=== PATIENT | female | born 1980 | race Caucasian/White ===

== ENCOUNTER 2019-02-01 18:39 | Emergency (ER) | payer MEDICAID, SELFPAY ==
[2019-02-01 18:40] VITALS: BP 136/96; PULSE 92; RESP 16; TEMP 37; O2SAT 98
--- NOTE | 2019-02-01 19:07 | ED.GENADUL_ITS ---
Discharge Plan Disposition Patient Disposition: HOME Condition: Improving Discharge Details Chief Complaint: Nk/Back Pain Clinical Impression: Muscle spasms of neck Primary Care Provider: Fide George ED Provider: Galindo Berman Home Meds and New Rx's Prescriptions: New diazepam [Valium] 2 mg tablet 2 mg PO BID PRN (Reason: spasm) Qty: 14 RF: 0 Continued Nexplanon 68 mg implant 68 mg Subdermal ONCE Qty: 1 RF: 0 multivitamin Tablet 1 tab PO DAILY RF: 0 Discharge Instructions Instructions: Spasmodic Torticollis (ED) Additional Instructions: Please take acetaminophen (tylenol) - 650mg every 6 hours by mouth as needed for pain. Please contact your primary care physician and neurology to arrange follow-up. Return to the ER for any worsening or new concerning symptoms. Referrals: Ashanti Donovan MD [ [facility] ST[facility]FF PHYSICIAN] - Medical Decision Making 19:18 --38-year-old female with history of PCOS and chronic intermittent HAs, here with neck stiffness and associated headache waxing and waning over the past 1 month and worse since yesterday [place] Patient has no fever or rash consistent with infectious etiology. Waxing and waning nature of headache is not consistent with bacterial meningitis or subarachnoid hemorrhage. Suspect neck spasm and associated cephalgia. Plan to treat with Toradol, Valium, occipital nerve block and reassess. 19:30 -- Patient provided informed consent for occipital nerve block. Occipital nerve block was performed without complication. 20:00 -- Patient was reassessed and noted significant improvement in pain and stiffness. Feels much better. I had a lengthy conversation with the patient regarding differential diagnosis - we discussed lumbar puncture to assess for acute life threatening and lifestyle modifying disease. She would prefer to monitor her symptoms further and does not wish to pursue more invasive diagnostics at this time - informed refusal of LP. Patient has decisional making capacity. She agrees to follow-up with neurology and to return for any worsening or new concerning symptoms. She understands that should PAUL persist, additional diagnostics including MRV/MRI would be indicated. 20:25 --patient again reassessed and notes dramatic improvement in discomfort. No rated 2/10. Requesting discharge. Patient understands importance of timely follow-up. Disposition decision was made weighing the risks and benefits of hospitalization versus outpatient treatment, the risk for further decompensation, and her wishes. The patient was stable and requested discharge. Prior to discharge, my usual and customary return precautions were reviewed with the patient - this included follow-up instructions and reason to return to the emergency department if condition worsens, does not improve as expected, or other new concerns arise. HPI General Mode of arrival: ambulatory . Date/Time Provider Initiated Documentation: 02/01/19 18:44 . Limitations to Documentation: no limitations . Information obtained by: patient . HPI Narrative: 38-year-old female with history of PCOS presents today with chief complaint of neck stiffness. Patient notes that she has had neck stiffness and associated headache waxing and waning over the past 3 weeks. Patient does not recall any specific inciting event. She notes that she saw her chiropractor for this who did a neck adjustment last week which did not resolve symptoms. Yesterday, she [place] the fair and went [place] a slide with her children. Today she notes neck stiffness worse. Patient states pain in her posterior neck left greater than right. Pain radiates to her occiput and around her scalp to her eyes. She has associated headache. No fevers. No rash. No tick bites. No visual changes. No numbness or weakness. Patient has been taking Excedrin Migraine for her discomfort. She notes that she has not taken ibuprofen and she is concerned about potential adverse effects to her stomach as she is post bariatric bypass surgery. Related Data Home Medications Medication Instructions Recorded Confirmed etonogestrel 68 mg subdermal 68 mg SUBDERMAL ONCE #1 implant 09/21/18 02/01/19 implant diazepam [Valium] 2 mg PO BID PRN #14 tab 02/01/19 multivitamin 1 tab PO DAILY 02/01/19 02/01/19 Previous Rx's Medication Instructions Recorded etonogestrel 68 mg subdermal 68 mg SUBDERMAL ONCE #1 implant 09/21/18 implant diazepam [Valium] 2 mg PO BID PRN #14 tab 02/01/19 Allergies Allergy/AdvReac Type Severity Reaction Status Date / Time No Known Allergies Allergy Unverified 02/01/19 18:47 General Stated Complaint: Nk/Back Pain MARK: 3 Review of Systems Review of Systems All systems reviewed & are unremarkable except as noted in HPI and below Constitutional Denies chills, Denies fever(s), Reports headache(s) and Denies weakness Eyes Denies blurry vision, Denies change in vision, Denies loss of vision and Reports photophobia ENT Denies vertigo and Reports headache(s) Musculoskeletal Reports as per HPI and Denies numbness Neurologic Denies confusion, Denies vertigo, Reports headache(s), Denies loss of vision, Denies numbness and Denies weakness Psychiatric Denies confusion PFSH Medical History GDMA2 (Resolved) Obesity (Inactive) Polycystic ovaries (Chronic) Pyelonephritis (Resolved) Surgical History section (04/01/14) Family History Other Arthritis Social History Smoking/Tobacco Use Status: Never Alcohol Intake: never Drug use: Never Household members: significant other Number of Children: 2 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 Female Reproductive History Menstrual control method: implanted (Nexplanon Lot # [id number] 01/22/21) History History 3 Para 2 Hx # Term Pregnancies 2 Multiple births Hx # Pregnancies 0 Ectopic pregnancies AB induced 0 Hx Number of Living Children 2 AB spontaneous 1 Past Pregnancies Del. Date GA/Weeks # Outcome Route Wgt Sex Labor Lgth Anesthes ia Location Prov Complic Unknown 7 No Unknown 39 No Unsuccessful vaginal 2.948 kg Female [facility] 04/01/14 39 No Successful 4.111 kg Male AOC Delivery Date: On 09/21/18 @ 13:03 Danielle Yuen First trimester SAB without complications Delivery Date: No notes to display Delivery Date: 04/01/14 On 09/21/18 @ 13:06 Danielle Yuen [place]. IOL for GDM. Arrest of descent. Exam Const General: cooperative and no acute distress HENMT Head: normocephalic and atraumatic Mouth: moist mucous membranes Eyes Conjunctivae: normal conjunctivae Sclera: normal sclerae EOM: EOM intact bilaterally Neck Neck: trachea midline and supple Resp Auscultation: clear to auscultation bilaterally, no rales, no rhonchi and no wheezes Cardio Jugular venous pressure: no JVD Rate: regular rate and not tachycardic Rhythm: regular rhythm GI Palpation: soft, not firm, no guarding, no masses, not rigid and nontender Back/Spine/Pelvis Cervical Spine: cervical muscular tenderness, pain with cervical ROM and cervical spasm Skin General skin exam: no rashes or lesions noted Neuro General: alert, awake, oriented x3 and tone normal Cranial Nerves: CN's II-XI intact bilaterally Speech: speech normal Motor: muscle tone normal throughout and strength 5/5 throughout Sensory Exam: no sensory deficits noted Extrem General: no edema Psych Appearance: grossly normal Mental Status: mental status grossly normal Speech and Movement: speech and movement normal Course Vital Signs Temperature 37 C 02/01/19 18:40 Pulse 92 H 02/01/19 18:40 Respiratory Rate 16 02/01/19 18:40 Blood Pressure 136/96 H 02/01/19 18:40 Pulse Oximetry 98 02/01/19 18:40 Temperature 37 C 02/01/19 18:40 Temperature Source Skin 02/01/19 18:40 Pulse 92 H 02/01/19 18:40 Respiratory Rate 16 02/01/19 18:40 Respiratory Effort 02/01/19 18:48 Blood Pressure 136/96 H 02/01/19 18:40 Blood Pressure Position Sitting 02/01/19 18:40 Pulse Oximetry 98 02/01/19 18:40 Oxygen Delivery Method Room Air 02/01/19 18:40 Oxygen Flow Rate 0 02/01/19 18:40 Pain Level 8 02/01/19 18:40 Procedures Nerve Block Nerve Block 1: Local Anesthetic: Lidocaine 1% (2ml) and Bupivicaine 0.5% (2mL) Side: left and right Nerve Blocks: occipital Procedure Successful: Yes Patient Tolerated Procedure: well Complications: none
[2019-02-01] MEDS: Acetaminophen 325 MG TAB 650 MG PO (19:15)
[2019-02-01] MEDS: diazePAM 5 MG TAB PO (19:15)
[2019-02-01] MEDS: Ketorolac 30 MG/ML VIAL IM (19:16)
== END 2019-02-01 20:30 | disposition home or self-care (01) ==
PROVIDERS: Emergency Provider Student in an Organized Health Care Education/Training Program; PCP Nurse Practitioner Family
DX: G24.3 Spasmodic torticollis (principal); R51 Headache
CPT/HCPCS: 64405; 96372; 99284; J1885

== ENCOUNTER 2019-04-24 18:15 | Emergency (ER) | payer MEDICAID, SELFPAY ==
[2019-04-24 18:17] VITALS: BP 145/91; PULSE 123; RESP 22; TEMP 37; O2SAT 98
--- NOTE | 2019-04-24 18:35 | W.ED.GENAD ---
Discharge Plan Disposition Patient Disposition: HOME Condition: Stable Discharge Details Chief Complaint: FlankPain Clinical Impression: Pyelonephritis Primary Care Provider: Fide George ED Provider: Alonzo Godwin Home Meds and New Rx's Prescriptions: New cephalexin 500 mg capsule 500 mg PO TID 7 Days Qty: 21 RF: 0 Continued Nexplanon 68 mg implant 68 mg Subdermal ONCE Qty: 1 RF: 0 multivitamin Tablet 1 tab PO DAILY RF: 0 acetaminophen 500 mg Tablet 1,000 mg PO PRN PRNRF: 0 Discharge Instructions Instructions: Urinary Tract Infection in Women (ED) Additional Instructions: Stop the previously prescribed antibiotic nitrofurantoin/Macrobid. You were given a dose of IV antibiotic this evening and should start the prescribed Keflex tomorrow. Small, frequent sips of fluids to maintain hydration. May use Tylenol and/or ibuprofen as needed for persistent discomfort. Follow-up with Fide George in clinic if not improved within 5 days time. Return to the emergency department for any acute concerns. Medical Decision Making <Dago Orozco MD - Last Filed: 04/24/19 19:38> 38-year-old female presents with 5 days of urinary frequency and urgency. She was prescribed Macrobid by primary care which she has been taking for 4 days. States she felt initially improved, now with 2 days of low back pain that is greater on the left associated with generalized malaise and decreased p.o. intake. She is tachycardic and dehydrated in appearance. Differential diagnosis includes pyelonephritis, acute cystitis, less likely kidney stone/ureteral colic. IV placed, urinalysis obtained, patient referred for screening laboratories. Given fluid bolus and ketorolac. Patient subsequently given 0.5 mg hydromorphone. Labs are notable for trace hematuria, chemistries reassuring, CBC with white count 4, hematocrit 41, platelets 269. CT scan obtained and reveals nonobstructing left renal calculus. There is mild left perinephric edema present. No obstructing calculus. Consistent with pyelonephritis. Patient is improving with medical treatment. Given gram of Rocephin and will subsequently place her on Keflex. She is to stop the Macrobid. Lab Data Lab results reviewed: Yes I reviewed the patient's lab results. Labs: Laboratory Results - last 24 hr 04/24/19 04/24/19 04/24/19 18:25 18:35 18:35 WBC 4.43 RBC 5.02 Hgb 14.4 Hct 41.7 MCV 83.1 MCH 28.7 MCHC 34.5 RDW 13.8 Plt Count 269 MPV 10.2 Immature Gran % 0.0 Neutrophils % 92.1 Lymphocytes % 6.1 Monocytes % 0.9 Eosinophils % 0.7 Basophils % 0.2 Absolute Neutrophils 4.08 Absolute Lymphocytes 0.27 L Absolute Monocytes 0.04 L Absolute Eosinophils 0.03 Absolute Basophils 0.01 Sodium 142 Potassium 3.4 L Chloride 105 Carbon Dioxide 28.5 Anion Gap 8.5 BUN 16 Creatinine 0.81 Estimated GFR/1.73 m2 >= 60.00 Glucose 95 Calcium 8.8 Total Bilirubin 0.8 AST 13 L ALT 25 Alkaline Phosphatase 75 Total Protein 7.6 Albumin 4.2 Urine Color Yellow Urine Clarity Clear Urine pH 6.0 Ur Specific [place] 1.025 Urine Protein Negative Urine Ketones Negative Urine Blood Small H Urine Nitrite Negative Urine Bilirubin Negative Urine Urobilinogen 0.2 Ur Leukocyte Esterase Negative Urine RBC 3-5 H Urine WBC 0-2 Ur Epithelial Cells Few Urine Crystals Negative Urine Bacteria Few Urine Casts Negative Urine Mucus Negative Urine Other Negative Ur Culture Indicated? No Urine Glucose Negative <Alonzo Godwin MD - Last Filed: 04/24/19 21:38> pt feeling much better after meds and fluids, HR on my exam is 102 and she feels much better. She is hd stable and appropriate for d/c at this time, advised f/u with pcp and return precautions given HPI <Dago Orozco MD - Last Filed: 04/24/19 19:38> General Mode of arrival: ambulatory. Date/Time Provider Initiated Documentation: 04/24/19 18:17. Limitations to Documentation: no limitations. Information obtained by: patient. History of Present Illness 38 year old F presents to the emergency department with the chief complaint of Flank pain, subjective chills, described as moderate, Quality is described as dull and constant, and is localized to the back and left. Patient reports no radiation. Patient started experiencing this day(s) and it has been intermittent. No relieving factors improve symptom(s), No exacerbating factors reported . Patient notes fever/chills, loss of appetite and malaise; denies nausea/vomiting. Patient did receive the following treatments prior to arrival, other (Macrobid) Related Data Home Medications Medication Instructions Recorded Confirmed etonogestrel 68 mg subdermal 68 mg SUBDERMAL ONCE #1 implant 09/21/18 04/24/19 implant multivitamin 1 tab PO DAILY 02/01/19 04/24/19 acetaminophen 1,000 mg PO PRN PRN 04/24/19 04/24/19 cephalexin 500 mg PO TID 7 Days #21 cap 04/24/19 Previous Rx's Medication Instructions Recorded etonogestrel 68 mg subdermal 68 mg SUBDERMAL ONCE #1 implant 09/21/18 implant cephalexin 500 mg PO TID 7 Days #21 cap 04/24/19 Allergies Allergy/AdvReac Type Severity Reaction Status Date / Time No Known Allergies Allergy Unverified 04/24/19 18:23 General Stated Complaint: FlankPain MARK: 3 Review of Systems <Dago Orozco MD - Last Filed: 04/24/19 19:38> Narrative: 6 systems reviewed and otherwise negative. PFSH <Dago Orozco MD - Last Filed: 04/24/19 19:38> Medical History GDMA2 (Resolved) Rx with Glyburide during . Obesity (Inactive) 2017 bariatric surgery. BMI declined from 42 to 30.4 (09/19/18) Polycystic ovaries (Chronic) Pyelonephritis (Resolved) 2015. 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 Female Reproductive History Menstrual control method: implanted (Nexplanon Lot # [id number] 01/22/21) History History 3 Para 2 Hx # Term Pregnancies 2 Multiple births Hx # Pregnancies 0 Ectopic pregnancies AB induced 0 Hx Number of Living Children 2 AB spontaneous 1 Past Pregnancies Del. Date GA/Weeks # Outcome Route Wgt Sex Labor Lgth Anesthesia Location Prov Complic Unknown 7 No Unknown 39 No Unsuccessful vaginal 2.948 kg Female [facility] 04/01/14 39 No Successful 4.111 kg Male AOC Delivery Date: On 09/21/18 @ 13:03 Danielle Yuen First trimester SAB without complications Delivery Date: No notes to display Delivery Date: 04/01/14 On 09/21/18 @ 13:06 Danielle Yuen [place]. IOL for GDM. Arrest of descent. Exam <Dago Orozco MD - Last Filed: 04/24/19 19:38> Narrative Exam Narrative: GEN: awake, alert, oriented 3. Pleasant, well groomed, interactive. HEAD: Normocephalic, atraumatic ENT: Mucous membranes dry, oropharynx unremarkable, External ear exam unremarkable EYES: PERRL, EOMI NECK: Full ROM, no BAUTISTA, no menigismus CHEST/RESP: Nontender, clear to auscultation bilateral, no wheeze/rhonchi/rales CARDIOVASCULAR: Regular and tachycardic, no murmur, rub shaneka. 2+ Rad pulse bilateral ABDOMEN: Soft, nontender, no mass. +Bowel sounds. Minimal left flank pain to percussion EXT: Full ROM, no edema, no rash Neuro: Grossly normal neurologic exam, conversant, interactive. Psych: Speech fluent, thoughts congruent, affect normal Course <Dago Orozco MD - Last Filed: 04/24/19 19:38> Vital Signs Vital signs: Vital Signs Temperature 37 C 04/24/19 18:17 Pulse 123 H 04/24/19 18:17 Respiratory Rate 22 04/24/19 18:17 Blood Pressure 145/91 H 04/24/19 18:17 Pulse Oximetry 98 04/24/19 18:17 Temperature 37 C 04/24/19 18:17 Temperature Source Skin 04/24/19 18:17 Pulse 123 H 04/24/19 18:17 Respiratory Rate 22 04/24/19 18:17 Blood Pressure 145/91 H 04/24/19 18:17 Blood Pressure Position Sitting 04/24/19 18:17 Pulse Oximetry 98 04/24/19 18:17 Oxygen Delivery Method Room Air 04/24/19 18:17 Oxygen Flow Rate 0 04/24/19 18:17 Pain Level 9 04/24/19 18:17 Sign Out <Dago Orozco MD - Last Filed: 04/24/19 19:38> Sign Out Data: Sign Out Comment: Re-eval or DC after fluids Last updated by Dago Orozco MD at 04/24/19 19:59
[2019-04-24 18:38] LABS: Bilirubin Negative (Negative); Blood Small (Negative); Clarity Clear (Clear); Glucose Negative (Negative); Ketones Negative (Negative); Leukocyte Esterase Negative (Negative); Nitrite Negative (Negative); Specific Gravity 1.025 (1.005-1.025); Urobilinogen 0.2 EU/dL (Up TO 0.2)
[2019-04-24 18:45] LABS: WBC 0-2 HPF (0-5)
[2019-04-24 18:46] LABS: Bacteria Few HPF (Negative); C & S Indicated? No; Casts Negative LPF (Negative); Crystals Negative HPF (Negative); Epithelial Cells Few HPF (Negative); Mucus Negative (Negative); Other Cells Negative (Negative)
[2019-04-24] MEDS: Ondansetron 4 MG/2 ML VIAL IVP (18:46)
[2019-04-24] MEDS: Normal Saline 1,000 ML 1000 ML IV ×2 (18:47→20:03)
[2019-04-24] MEDS: Ketorolac 30 MG/ML VIAL IVP (18:47)
[2019-04-24] MEDS: Normal Saline Flush 10 ML SYR IVP (18:47)
[2019-04-24 18:55] LABS: Absolute Basophil Count 0.01 k/cumm (0.0-0.2); Absolute Eosinophil Count 0.03 k/cumm (0.0-0.7); Absolute Lymphocyte Count 0.27 k/cumm (1.2-3.4); Absolute Monocyte Count 0.04 k/cumm (0.11-0.7); Absolute Neutrophil Count 4.08 k/cumm (1.2-6.7); Basophils % 0.2; Eosinophils % 0.7; HCT 41.7 % (36.0-46.0); HGB 14.4 g/dL (12.0-15.5); Lymphocytes % 6.1; Mean Corp. HGB Concentration 34.5 g/dL (32.0-36.0); Mean Corpuscular Hemoglobin 28.7 pg (27.0-33.0); Mean Corpuscular Volume 83.1 fL (80-95); Mean Platelet Volume 10.2 fL (8.0-11.0); Monocytes % 0.9; Neutrophils % 92.1; Platelet Count 269 x1000/uL (130-400); RBC 5.02 m/cumm (4.00-5.20); RBC Distribution Width 13.8 % (11.7-14.6); White Blood Cell Count 4.43 k/cumm (4.4-10.8)
[2019-04-24 19:15] LABS: ALT 25 U/L (14-59); AST 13 U/L (15-37); Albumin 4.2 g/dL (3.4-5.0); Alkaline Phosphatase 75 U/L (46-116); Anion Gap 8.5 mmol/L (3-11); BUN 16 mg/dL (7-18); Bilirubin, Total 0.8 mg/dL (0.2-1.0); CO2 28.5 mmol/L (21.0-32.0); CREATININE 0.81 mg/dL (0.55-1.02); Calcium 8.8 mg/dL (8.5-10.1); Chloride 105 mmol/L (98-107); Glucose 95 mg/dL (70-100); Potassium 3.4 mmol/L (3.5-5.1); Sodium 142 mmol/L (136-145); Total Protein 7.6 g/dL (6.4-8.2)
--- NOTE | 2019-04-24 19:22 | DI.CT_ITS ---
EXAM: CT RENAL COLIC WO CLINICAL HISTORY: L flank pain TECHNIQUE: Noncontrast from the level of the adrenals through the ischial tuberosities. COMPARISON: ABD AND PELVIS WITH CONTRAST from 08/13/2015 FINDINGS: Suture material is seen in the stomach. A few small stones are noted in the gallbladder. There is n o abnormal gallbladder distention or biliary dilatation. The adrenals, spleen and pancreas are unrem arkable. There is a small nonobstructing stone in the mid left kidney. There is no hydronephrosis. There is minimal perinephric stranding. The bladder, uterus and ovaries are unremarkable. There is no free air or free fluid. The appendix appears normal. There are diverticula in the lower descend ing and sigmoid colon but no evidence of diverticulitis. There is no small bowel dilatation. IMPRESSION: Nonobstructing 2-3 millimeter stone in the mid left kidney. No acute abnormality.
--- NOTE | 2019-04-24 19:34 | DI.VRAD_ITS ---
PROCEDURE INFORMATION: Exam: CT Abdomen And Pelvis Without Contrast Exam date and time: 04/24/2019 6:58 PM Clinical history: 38 years old, female; Abdominal pain; Flank; Left; Prior surgery; Surgery date: 6+ months; Surgery type: Gastic bypass, TECHNIQUE: Imaging protocol: Computed tomography of the abdomen and pelvis without contrast. Radiation optimization: All CT scans at this facility use at least one of these dose optimization techniques: automated exposure control; mA and/or kV adjustment per patient size (includes targeted exams where dose is matched to clinical indication); or iterative reconstruction. COMPARISON: CT ABD PELVIS WITH CONTRAST 08/13/2015 6:32 PM FINDINGS: Liver: Normal as shown, incompletely imaged. No mass. Gallbladder and bile ducts: Gallstones. Pancreas: Normal. No ductal dilation. Spleen: Normal as shown, incompletely imaged. Adrenals: Normal. No mass. Kidneys and ureters: Nonobstructing left renal calculus noted. There is mild left perinephric edema. No hydronephrosis or hydroureter evident. No obstructing calculus seen. Stomach and bowel: Status post gastric bypass. Appendix: Appendix is well seen, within normal limits Intraperitoneal space: Unremarkable. No free air. No significant fluid collection. Vasculature: Unremarkable. No abdominal aortic aneurysm. Lymph nodes: Unremarkable. No enlarged lymph nodes. Bladder: Unremarkable as visualized. Reproductive: Unremarkable as visualized. Bones/joints: Unremarkable. No acute fracture. Soft tissues: Unremarkable. Other findings: The upper abdomen is not included on the exam. IMPRESSION: Nonobstructing left renal calculus. Mild perinephric edema is of uncertain significance. Consider recently passed calculus or possible pyelonephritis. COMMENT: Preliminary interpretation is based on receipt of 1202 image(s). A final report will be issued subsequently. Dictated and Authenticated by: Kelly Rodriguez MD. Ordering:LUPIS Loza MD
[2019-04-24] MEDS: HYDROmorphone 2 MG/ML VIAL 0.5 MG IVP (19:59)
[2019-04-24 20:16] VITALS: BP 120/76; PULSE 117; RESP 17; O2SAT 95
[2019-04-24] MEDS: cefTRIAXone 1 GM/50 ML BAG IVPB (20:16)
[2019-04-24 21:06] VITALS: BP 129/62; PULSE 104; RESP 15; O2SAT 99
[2019-04-24 21:33] VITALS: BP 126/74; PULSE 103; RESP 17; TEMP 36.8; O2SAT 98
== END 2019-04-24 21:40 | disposition home or self-care (01) ==
PROVIDERS: Emergency Medicine; Emergency Provider Emergency Medicine; PCP Nurse Practitioner Family
DX: N10 Acute pyelonephritis (principal); N20.0 Calculus of kidney
CPT/HCPCS: 36415; 80053; 81025; 96361; 96365; 96375; 99284; 74176; 81003; 81015; 85025; J0696; J1885; J2405

== ENCOUNTER 2019-10-14 02:18 | Outpatient (CLI) | payer MEDICAID, SELFPAY ==
[2019-10-14 08:22] LABS: HCT 38.9 % (36.0-46.0); HGB 13.5 g/dL (12.0-15.5); Mean Corp. HGB Concentration 34.7 g/dL (32.0-36.0); Mean Corpuscular Hemoglobin 28.7 pg (27.0-33.0); Mean Corpuscular Volume 82.8 fL (80-95); Mean Platelet Volume 10.3 fL (8.0-11.0); Platelet Count 248 x1000/uL (130-400); White Blood Cell Count 9.01 k/cumm (4.4-10.8)
[2019-10-14 08:51] LABS: Iron 82 ug/dL (50-170)
[2019-10-14 09:12] LABS: ALT 20 U/L (14-59); AST 9 U/L (15-37); Albumin 3.6 g/dL (3.4-5.0); Alkaline Phosphatase 62 U/L (46-116); Anion Gap 6.9 mmol/L (3-11); BUN 12 mg/dL (7-18); Bilirubin, Total 0.6 mg/dL (0.2-1.0); CO2 28.1 mmol/L (21.0-32.0); CREATININE 0.73 mg/dL (0.55-1.02); Calcium 8.8 mg/dL (8.5-10.1); Chloride 103 mmol/L (98-107); Ferritin 43 ng/mL (8-252); Glucose 83 mg/dL (74-106); Sodium 138 mmol/L (136-145); Total Protein 6.5 g/dL (6.4-8.2); Vitamin B12 713 pg/mL (193-986)
[2019-10-14 09:13] LABS: Folate > 20.0 ng/mL (8.6-20.0)
[2019-10-15 05:34] LABS: Vitamin D 25 Total 19.5 ng/ml (30-100)
[2019-10-15 09:11] LABS: Parathyroid Hormone,Intact 24 pg/mL (19-88)
[2019-10-17 06:07] LABS: Thiamine (Vitamin B1), WB 205 nmol/L (70-180)
== END 2019-10-14 02:38 ==
PROVIDERS: PCP Nurse Practitioner Family; Visit Provider Nurse Practitioner Family
DX: E55.9 Vitamin D deficiency, unspecified (principal); E83.10 Disorder of iron metabolism, unspecified; K91.2 Postsurgical malabsorption, not elsewhere classified; Z98.84 Bariatric surgery status
CPT/HCPCS: 36415; 80053; 82306; 85027; 82607; 82728; 82746; 83540; 83970; 84425

== ENCOUNTER 2020-08-10 19:07 | Outpatient (REF) | payer MEDICAID, SELFPAY | END 2020-08-10 19:08 | disposition home or self-care (01) | LOC: NCHCN 19:07 | PROVIDERS: PCP Nurse Practitioner Family; Visit Provider Family Medicine | DX: N76.0 Acute vaginitis (principal); N93.9 Abnormal uterine and vaginal bleeding, unspecified; R82.998 Other abnormal findings in urine | CPT/HCPCS: 87086; 87480; 87510; 87660 ==

== ENCOUNTER 2020-09-08 03:24 | Outpatient (CLI) | payer MEDICAID, SELFPAY ==
[2020-09-08 07:56] LABS: HCT 39.2 % (36.0-46.0); HGB 13.3 g/dL (11.2-15.7); MCH 28.5 pg (27.0-33.0); MCHC 33.9 % (32.0-36.0); MCV 84.1 fL (80-95); MPV 10.4 fL (8.0-11.0); Platelet Count 241 10^3/uL (130-400); RBC 4.66 10^6/uL (3.93-5.22); RDW 13.4 % (11.7-14.6); RDW-SD 41.2 fL; WBC 6.34 10^3/uL (4.4-10.8)
[2020-09-08 08:44] LABS: Iron 68 ug/dL (50-170); Total Iron Binding Capacity 271 ug/dL (250-450); Transferrin Sat 25 % (15-50)
[2020-09-08 09:07] LABS: Vitamin D 25 Total 23.9 ng/mL (30-100)
[2020-09-08 09:40] LABS: ALT 21 U/L (14-59); AST 10 U/L (15-37); Albumin 3.9 g/dL (3.4-5.0); Alkaline Phosphatase 57 U/L (46-116); Anion Gap 8.3 mmol/L (3-11); BUN 13 mg/dL (7-18); Bilirubin, Total 0.8 mg/dL (0.2-1.0); CO2 29.7 mmol/L (21.0-32.0); CREATININE 0.8 mg/dL (0.55-1.02); Calcium 8.7 mg/dL (8.5-10.1); Chloride 106 mmol/L (98-107); Ferritin 50 ng/mL (8-252); Glucose 87 mg/dL (74-106); Potassium 3.9 mmol/L (3.5-5.1); Sodium 144 mmol/L (136-145); Total Protein 6.9 g/dL (6.4-8.2); Vitamin B12 900 pg/mL (193-986)
[2020-09-08 09:50] LABS: Folate > 20.0 ng/mL (8.6-20.0)
[2020-09-09 10:04] LABS: Parathyroid Hormone,Intact 58 pg/mL (19-88)
[2020-09-10 08:35] LABS: Thiamine (Vitamin B1), WB 186 nmol/L (70-180)
== END 2020-09-08 03:25 | disposition home or self-care (01) ==
PROVIDERS: PCP Nurse Practitioner Family
DX: K90.89 Other intestinal malabsorption (principal); K91.2 Postsurgical malabsorption, not elsewhere classified; Z98.84 Bariatric surgery status
CPT/HCPCS: 36415; 80053; 82306; 85027; 82607; 82728; 82746; 83540; 83550; 83970; 84425

== ENCOUNTER 2021-12-19 19:01 | Outpatient (REF) | payer MEDICAID, SELFPAY | END 2021-12-19 19:02 | disposition home or self-care (01) | LOC: LBN 19:01 | PROVIDERS: PCP Nurse Practitioner Family; Visit Provider Family Medicine | DX: R39.89 Other symptoms and signs involving the genitourinary system (principal) | CPT/HCPCS: 87077; 87086; 87186 ==

== ENCOUNTER 2025-04-26 17:47 | Emergency (ER) | payer MEDICAID, SELFPAY ==
[2025-04-26] VITALS (11 sets, daily range): BP systolic 160–200; BP diastolic 100–130; PULSE 78–96; RESP 14–19; TEMP 36.8; O2SAT 97–99
[2025-04-26] MEDS: Prochlorperazine 10 MG/2 ML VIAL IVP (18:33)
[2025-04-26] MEDS: diazePAM 10 MG/2 ML SYR 2.5 MG IVP (18:34)
[2025-04-26] MEDS: Normal Saline - Diluent 50 ML VIAL IJ (18:35)
[2025-04-26] MEDS: Normal Saline Flush 10 ML SYR IVP (18:35)
--- NOTE | 2025-04-26 18:35 | DI.CT_ITS ---
Exam(s) CT BRAIN NECK CTA EXAM: CT BRAIN NECK CTA CLINICAL HISTORY: PAUL, radiating from neck. TECHNIQUE: Imaging Protocol: Axial CT angiography was performed with multi- slice acquisition and multi-planar and/or 3D reconstructions. CONTRAST MATERIAL: Intravenous: Omnipaque 350 Contrast volume:70 mL COMPARISON: CT HEAD WITHOUT CONTRAST from 12/21/2014 FINDINGS: CTA Neck W: Aortic arch anatomy: The aortic arch anatomy is conventional and there is no significant stenosis at the origin of the great vessels off of the aortic arch. No intimal flap evident. Anterior circulation: Both common carotid arteries ascend with normal luminal diameters. At the level the carotid bulbs and proximal internal carotid arteries there is minimal plaque without hemodynamically significant stenosis evident. The right internal carotid artery in the upper neck is noted to be tortuous prior to entering the skull base-carotid canal but without significant stenosis at this level. Posterior circulation: Both vertebral arteries originate in conventional fashion off of the subclavian arteries and there is no obvious stenosis at the origin of the vertebral arteries. Both vertebral arteries exhibit normal luminal diameters within the foramen transversarium. No evidence of stenosis nor thrombosis nor dissection of the vertebral arteries Both vertebral arteries contribute to the formation of the basilar artery at the skull base. CTA Brain W: Anterior circulation: Both internal carotid arteries are patent in the skull base-carotid canals as well as within the cavernous sinuses. The supraclinoid aspects of the ICAs are patent. Both A1 segments are patent as are the anterior cerebral arteries and there is no evidence of aneurysm at the level of the anterior communicating artery. Both middle cerebral arteries are patent with no evidence of significant stenosis nor intraluminal thrombus. There also no aneurysms of these vessels. Posterior circulation: The basilar artery ascends in the midline. Distally it gives off patent bilateral superior cerebellar arteries. Above this level the basilar artery terminates as patent bilateral posterior cerebral arteries. There is no evidence of aneurysm at the tip of the basilar artery nor elsewhere in the [id number]. CT BRAIN: There is no evidence of intracranial hemorrhage, mass effect, or shift of midline structures. There are no extra-axial fluid collections. Ventricles are not enlarged or shifted. There are no ring enhancing lesions in the brain and no abnormal meningeal enhancement. There is no evidence of vascular malformation in the brain. IMPRESSION: 1. Patent carotid arteries in the neck. No hemodynamically significant stenosis. No dissection 2. Patent vertebral arteries. No thrombosis nor dissection. 3. Patent intracranial arteries. No significant stenosis nor thrombosis. 4. No evidence of ring-enhancing lesions in the brain nor evidence of vascular malformations nor acute intracranial findings. Report called by myself to ER physician 04/26/2025 7:18 p.m. RADIATION DOSE DELIVERED: 1,869.3mGy.cm Total DLP DATA REPOSITORY: All CT scans at this facility are submitted to the National Radiology Data Registry (NRDR) Dose Index Registry (DIR) with the [employer] (ACR). RADIATION OPTIMIZATION: All CT scans at this facility use at least one of these dose optimization techniques: automated exposure control; mA and/or kV adjustment per patient size (includes targeted exams where dose is matched to clinical indication); or iterative reconstruction.
[2025-04-26] MEDS: Omnipaque 350 MG/ML 100 ML BTL IJ (18:36)
[2025-04-26 18:48] LABS: Abs Immature Grans 0.04 10^3/uL (0.0-0.06); HCT 42.8 % (36.0-46.0); HGB 13.6 g/dL (11.2-15.7); Immature Grans % 0.4 %; MCH 24.6 pg (27.0-33.0); MCHC 31.8 % (32.0-36.0); MCV 77 fL (80-95); MPV 9.9 fL (8.0-11.0); Platelet Count 311 10^3/uL (130-400); RBC 5.53 10^6/uL (3.93-5.22); RDW 14.3 % (11.7-14.6); RDW-SD 39.6 fL; WBC 9.81 10^3/uL (4.4-10.8)
[2025-04-26 19:06] LABS: ALT 25 U/L (10-49); AST 19 U/L (<34); Albumin 4.6 g/dL (3.4-5.0); Alkaline Phosphatase 62 U/L (46-116); Anion Gap 7.8 mmol/L (3-11); BUN 12 mg/dL (9-23); Bilirubin, Total 0.80 mg/dL (0.2-1.2); CO2 27.2 mmol/L (20.0-31.0); Calcium 9.0 mg/dL (8.3-10.6); Chloride 106 mmol/L (98-107); Glucose 84 mg/dL (74-106); Potassium 3.5 mmol/L (3.5-5.1); Sodium 141 mmol/L (136-145); Total Protein 7.6 g/dL (5.7-8.2)
[2025-04-26] MEDS: ACETAMINOPHEN 500 MG/50 ML BAG 200 MG IVPB (19:49)
[2025-04-26] MEDS: Ketorolac 15 MG/ML VIAL 7.5 MG IVP (19:49)
[2025-04-26] MEDS: Dexamethasone 10 MG/ML VIAL IVP (19:50)
[2025-04-26] MEDS: amLODIPine 5 MG TAB PO (20:56)
[2025-04-26] MEDS: Prochlorperazine 10 MG TAB PO (20:57)
--- NOTE | 2025-04-26 23:20 | W.ED.GENAD ---
Discharge Plan Disposition Patient Disposition: Home Discharge Details Clinical Impression: Headache, Elevated blood pressure reading Primary Care Provider: Unknown,Unknown ED Provider: Cathie Sher Home Meds and New Rx's Prescriptions: New prochlorperazine maleate [Compazine] 10 mg tablet 10 mg PO Q6H PRNQty: 10 0RF Rx Instructions: prn nausea and headache amlodipine 5 mg tablet 5 mg PO DAILY Qty: 60 0RF Continued calcium carbonate [Calcium 600] 600 mg calcium (1,500 mg) tablet 600 mg PO DAILY cyanocobalamin (vitamin B-12) 1,000 mcg capsule 1,000 mcg PO DAILY Nexplanon 68 mg implant 68 mg Subdermal ONCE Qty: 1 0RF multivitamin Tablet 1 tab PO DAILY Rx Instructions: 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 It is very important that you have your blood pressure rechecked in the next week to be sure that it is not still too high or too low you may take the compazine as needed for headache at home. Please return should you develop worsening headache or should any new concerns arise Stand Alone Forms: Portal Information Discharge Data Discharge Date/Time-TO BE ENTERED AT DEPARTURE: 04/26/25 21:18 HPI General Date/Time Provider Initiated Documentation: 04/26/25 17:55. HPI Narrative: This 44-year-old female presents with headache, history of migraines, similar headache and pain in this have intermittent headaches since that time. States this headache is one of her worst. Intermittent over the course of the past few days, laid down when she woke headache worsened, radiating from the back of her neck up to the top of her head per patient. She states she actually changed her pillow last evening and woke up without headache this morning. Did not take any meds prior to arrival. Went to urgent care and as her blood pressure was elevated they sent her to the emergency department for additional assessment. Patient denies any strength or sensation or speech changes. She is not drink alcohol or smoke tobacco. She denies any chance of . She denies known history of high blood pressure but has not had a primary care doctor in the past 3 years. She is light and sound sensitive per patient. Related Data Home Medications Medication Instructions Recorded Confirmed multivitamin 1 tab PO DAILY 02/01/19 04/26/25 acetaminophen 500 mg tablet 1,000 mg PO PRN PRN 04/24/19 04/26/25 calcium carbonate (Calcium 600) 600 mg PO DAILY 09/25/21 04/26/25 cyanocobalamin (vitamin B-12) 1,000 mcg PO DAILY 09/25/21 04/26/25 1,000 mcg capsule etonogestrel 68 mg subdermal 68 mg subdermal ONCE #1 ea 09/27/21 04/26/25 implant (Nexplanon) amlodipine 5 mg tablet 5 mg PO DAILY #60 tabs 04/26/25 prochlorperazine maleate 10 mg 10 mg PO Q6H PRN #10 tabs 04/26/25 tablet (Compazine) Previous Rx's Medication Instructions Recorded etonogestrel 68 mg subdermal 68 mg subdermal ONCE #1 ea 09/27/21 implant (Nexplanon) amlodipine 5 mg tablet 5 mg PO DAILY #60 tabs 04/26/25 prochlorperazine maleate 10 mg 10 mg PO Q6H PRN #10 tabs 04/26/25 tablet (Compazine) Allergies Allergy/AdvReac Type Severity Reaction Status Date / Time No Known Allergies Allergy Unverified 04/26/25 17:52 General Stated Complaint: Headache MARK: 3 Exam Narrative Exam Narrative: Alert and oriented 44-year-old female in no acute discomfort, pupils are equal round and reactive accommodation there is no meningismus lungs are clear to auscultation cardiac rate rhythm regular ambulatory with steady gait. No rashes or lesions tenderness with palpation over occipital nerve Course Vital Signs Vital signs: Vital Signs Temperature 36.8 C 04/26/25 17:48 Pulse 88 04/26/25 17:48 Respiratory Rate 18 04/26/25 17:48 Blood Pressure 200/130 H 04/26/25 17:48 Pulse Oximetry 98 04/26/25 17:48 Temperature 36.8 C 04/26/25 20:21 Pulse 89 04/26/25 20:50 Pulse 89 04/26/25 20:50 Respiratory Rate 19 04/26/25 20:50 Blood Pressure 160/100 H 04/26/25 20:53 Blood Pressure Mean 120 04/26/25 20:53 Pulse Oximetry 97 04/26/25 20:50 Pain Level 7 04/26/25 19:49 Comment Manual BP 160/100 04/26/25 20:46 Lab/Test Results Lab/Test Results: Laboratory Tests Range/Units 04/26/25 18:37 WBC (4.4-10.8) 10^3/uL 9.81 RBC (3.93-5.22) 10^6/uL 5.53 H Hgb (11.2-15.7) g/dL 13.6 Hct (36.0-46.0) % 42.8 MCV (80-95) fL 77 L MCH (27.0-33.0) pg 24.6 L MCHC (32.0-36.0) % 31.8 L RDW (11.7-14.6) % 14.3 Plt Count (130-400) 10^3/uL 311 MPV (8.0-11.0) fL 9.9 Immature Gran % % 0.4 Neutrophils % % 74.7 Lymphocytes % % 17.7 Monocytes % % 5.5 Eosinophils % % 1.3 Basophils % % 0.4 Nucleated RBC % (0.0-0.3) % 0.0 Absolute Neutrophils (1.2-6.7) 10^3/uL 7.32 H Absolute Lymphocytes (1.2-3.4) 10^3/uL 1.74 Absolute Monocytes (0.1-0.8) 10^3/uL 0.54 Absolute Eosinophils (0.0-0.7) 10^3/uL 0.13 Absolute Basophils (0.0-0.2) 10^3/uL 0.04 Sodium (136-145) mmol/L 141 Potassium (3.5-5.1) mmol/L 3.5 Chloride (98-107) mmol/L 106 Carbon Dioxide (20.0-31.0) mmol/L 27.2 Anion Gap (3-11) mmol/L 7.8 BUN (9-23) mg/dL 12 Creatinine (0.55-1.02) mg/dL 0.7 Est GFR (CKD-EPI 2020) (mL/min/1.73m2) 91.40 Glucose (74-106) mg/dL 84 Calcium (8.3-10.6) mg/dL 9.0 Total Bilirubin (0.2-1.2) mg/dL 0.80 AST (<34) U/L 19 ALT (10-49) U/L 25 Alkaline Phosphatase (46-116) U/L 62 Total Protein (5.7-8.2) g/dL 7.6 Albumin (3.4-5.0) g/dL 4.6 POC- Test(urine) Negative Procedure Nerve Block 1st Nerve Block: Date of Procedure: 04/26/25 Time of procedure: 23:23 Provider that performed the procedure: Cathie Sher Indication: Local pain control Standard Time Out Performed: Yes Patient Consented: Verbally Local Anesthetic: Lidocaine 1% Amount of anethetic used(mL): 5 Laterality: Left Nerve Blocks: occipital Ultrasound: Not used. Post Procedure Pain Score (0-10): 0 Procedure Tolerated: No Complications and Patient tolerated well Procedure Outcome: Successful Medical Decision Making Results: Given the dramatic worsening of headache at 2:00 today did order CTA of patient's head and neck with and without contrast, this did not show evidence of aneurysm or rupture, no acute abnormality, CBC and CMP are reassuring Assessment and plan: Initially hypertension thought to be secondary to migraine headache. As CTA of patient's head and neck was negative, I did order Toradol, Decadron, and Tylenol. She received Compazine and some discomfort in her neck. Patient states her pain is almost completely resolved and she feels significant improvement. She does have tenderness over the left occipital nerve so I did perform an occipital nerve block. She tolerated this procedure without incident. Her blood pressure remains high despite complete resolution of her headache at 160/100. I did back and her blood pressure has been consistently elevated in the past. I will start her on amlodipine. She will need an urgent recheck by primary care within 1 week. She does not currently have a primary care physician so she will be placed on the list for follow-up and then will need to establish care thereafter. She will purchase a blood pressure cuff from her check her blood pressures at home. I gave her a prescription for Compazine as needed for headache and she is encouraged to return immediately should she have return of headache or worsening symptoms. I do not think her blood pressure is causing her headaches and she has a history of migraine headaches and I suspect her blood pressure has been elevated for some Time as evidenced by her prior chart PFSH All Active Problems (Updated 04/26/25 @ 20:36 by WAQAR Magana) Elevated blood pressure reading (Acute) Headache (Acute) Nexplanon in place (Acute) Polycystic ovaries (Chronic) Temporomandibular joint disorder (Chronic) Nexplanon insertion (Acute 09/14/15) 2015, 2018, 2021. PCOS (polycystic ovarian syndrome) (Chronic) Medical History (Updated 04/26/25 @ 20:36 by WAQAR Magana) GDMA2 Rx with Glyburide during . Surgical History (Updated 09/27/21 @ 09:53 by Danielle Yuen MD) section (04/01/14) IOL at 39w4 day for GDMa2. Max dilation 8cm. LTCS. SyedaVianney [place]. 9lb1oz. 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 Female Reproductive History Menstrual control method: implanted (Nexplanon Lot # [id number] Exp 01/22/21) History History 3 Para 2 Hx # Term Pregnancies 2 Multiple births Hx # Pregnancies 0 Ectopic pregnancies AB induced 0 Hx Number of Living Children 2 AB spontaneous 1 Past Pregnancies Del. Date GA/Weeks # Preg Succ Route Wgt Sex Labor Lgth Anesthesia Location Prov Complic Unknown 7 No Unknown 39 No vaginal 2948.35 g Female [facility] 04/01/14 39 No 4110.681 g Male AOC Delivery Date: Last Updated by: Danielle O'Genaro, M.D. First trimester SAB without complications Delivery Date: 04/01/14 Last Updated by: Danielle Yuen M.D. [place]. IOL for GDM. Arrest of descent.
== END 2025-04-26 21:18 | disposition home or self-care (01) ==
PROVIDERS: Emergency Provider Physician Assistant
DX: R50.9 Fever, unspecified (principal); R03.0 Elevated blood-pressure reading, without diagnosis of hypertension
CPT/HCPCS: 99284; 99285; 81025; 96375; 64405; 64450; 70496; 70498; 80053; 96365; 85025; J0131; J0780; J1100; J1885; J2003; J3360; J3490